=== PATIENT | female | born 1955 | race Caucasian/White ===

== ENCOUNTER 2019-06-25 01:24 | Inpatient (IN) | payer OTHER ==
[~2019-06-25] VITALS: Ht 154.9 cm; Wt 70.3 kg
[2019-06-25 01:34] VITALS: BP 135/62
[2019-06-25] MEDS ORDERED: LOSARTAN-HCTZ1 EAC1 PO (01:50)
[2019-06-25 02:25] LABS: ABSOLUTE NEUTROPHILS 10.9 thou/uL (1.4-8.2); BASOPHILS 1.3 % (0.0-2.0); EOSINOPHILS 2.1 % (0.0-3.0); HEMATOCRIT 39.2 % (37.0-47.0); HEMOGLOBIN 12.7 gm/dL (12.0-15.0); LYMPHOCYTES 20.8 % (24.0-44.0); MCH 26.9 pg (26.0-34.0); MCHC 32.5 g/dL (28.0-37.0); MCV 82.8 fL (80.0-100.0); MONOCYTES 9.7 % (1.0-8.0); PLATELET COUNT 379 thou/uL (150-400); POLYS 66.1 % (36.0-66.0); RBC 4.73 mil/uL (4.20-5.00); RDW 14.9 % (10.5-14.5); WBC 16.5 thou/uL (4.0-11.0)
[2019-06-25 02:26] LABS: CREATININE 1.1 mg/dL (0.6-1.0); POTASSIUM 3.6 mmol/L (3.5-5.1)
[2019-06-25 02:29] LABS: URINE BILIRUBIN NEGATIVE (Negative); URINE BLOOD 1+ (Negative); URINE CLARITY CLEAR; URINE COLOR YELLOW; URINE GLUCOSE-RANDOM* NEGATIVE (Negative); URINE KETONES NEGATIVE (Negative); URINE LEUKOCYTES-REFLEX TRACE (Negative); URINE NITRITE-REFLEX NEGATIVE (Negative); URINE PROTEIN (DIPSTICK) NEGATIVE (Negative); URINE UROBILINOGEN 0.2 E.U./dl (0.2-1.0)
[2019-06-25 02:32] LABS: ALBUMIN 3.3 g/dL (3.4-5.0); DIRECT BILIRUBIN 0.1 mg/dL (<0.1-0.3); TOTAL BILIRUBIN 0.5 mg/dL (<0.1-1.0); TOTAL PROTEIN 8.1 g/dL (6.4-8.2)
[2019-06-25 02:46] LABS: BACTERIA-REFLEX 1-9 Few /HPF (None Seen); CASTS None Seen /LPF (None Seen); CRYSTALS None Seen /LPF (None Seen); MUCUS 0-3 Light strn/LPF (None Seen); SQUAMOUS 0-3 Few /LPF (0-3); URINE RBC 3-10 Few /HPF (0-2); URINE WBC-REFLEX 0-5 Rare /HPF (0-5)
[2019-06-25 03:21] VITALS: BP 105/44
[2019-06-25 04:15] VITALS: BP 124/53
--- NOTE | 2019-06-25 07:32 | NUR ---
ASSUMED PT CARE ON 06/25/19 AT APPROX 0420. PT A&O X 4 IS BENGALI SPEAKING. PT IS COMPLAINING OF ABDOMINAL PAIN. PT IS UP AD RANDEE. PT HAS A LEFT AC WITH NS RUNNING AT 100MLS. PT HAS TWO FAMILY MEMEBERS IN THE ROOM WITH HER. PT RECEIVED TORADAL.
[2019-06-25 07:40] VITALS: BP 101/50
--- NOTE | 2019-06-25 07:51 | NUR ---
PATIENT RESTING QUIETLY IN BED NO PAIN SPEAKS SWEDISH STAFF USING JASKARAN TO TRANSLATE.
[2019-06-25 16:19] VITALS: BP 153/77
[2019-06-25 20:01] VITALS: BP 155/58
--- NOTE | 2019-06-26 03:25 | NUR ---
ASSUMED CARE @1900. PT COMPLAINING OF HEADACHE & UPPER ABDOMINAL PAIN. TEMP OF 101 TAKEN. TYLENOL & ACID REFLUX MEDS GIVEN, PROVIDED RELIEF. PTS GRANDON IN ROOM, GOOD CORPORATE ACCOUNTING MANAGER. COT PROVIDED FOR HIM TO STAY THE NIGHT. PT SLEPT MOST THE NIGHT.
[2019-06-26 03:40] LABS: ALBUMIN 2.8 g/dL (3.4-5.0); CALCIUM 8.4 mg/dL (8.5-10.1); PHOSPHORUS 2.6 mg/dL (2.5-4.9); POTASSIUM 3.2 mmol/L (3.5-5.1)
[2019-06-26 03:46] LABS: HEMATOCRIT 35.5 % (37.0-47.0); HEMOGLOBIN 11.6 gm/dL (12.0-15.0); MCH 27.3 pg (26.0-34.0); MCHC 32.6 g/dL (28.0-37.0); MCV 83.8 fL (80.0-100.0); RBC 4.23 mil/uL (4.20-5.00); RDW 15.3 % (10.5-14.5); WBC 13.5 thou/uL (4.0-11.0)
[2019-06-26 05:43] VITALS: BP 134/66
[2019-06-26 08:20] VITALS: BP 126/68
--- NOTE | 2019-06-26 10:07 | NUR ---
Resumed care at 0700. PT was asleep in bed with nephew asleep in recliner at bedside. PT awoke easily and denied any pain or discomfort. VSS. Education provided about plan of care and medications. Nephew at bedside translates between nurse and PT. PT verbalized understanding. PT is lying in bed. Call light is within reach. Nurse will continue to monitor.
[2019-06-26 16:00] VITALS: BP 128/62
[2019-06-26 20:45] VITALS: BP 134/71
--- NOTE | 2019-06-27 04:50 | NUR ---
PATIENT ALERT AND ORIENTED. DOES NOT SPEAK MUCH MOZAMBICAN BUT HAS FAMILY MEMBER IN ROOM WITH HER. ACCUCHECK WAS 215. EXPLAINED THE REASON FOR TAKING IT, THE METHYLPREDNISONE. PT UP IN ROOM AD RANDEE. SLEPT MOST OF NIGHT.
[2019-06-27 05:11] LABS: HEMATOCRIT 39.2 % (37.0-47.0); HEMOGLOBIN 12.5 gm/dL (12.0-15.0); MCH 27.1 pg (26.0-34.0); MCV 84.9 fL (80.0-100.0); RBC 4.62 mil/uL (4.20-5.00); WBC 15.8 thou/uL (4.0-11.0)
[2019-06-27 05:35] VITALS: BP 126/67
[2019-06-27 05:36] LABS: GLYCOHEMOGLOBIN (HGB A1C) 6.2 % (4.8-5.6)
[2019-06-27 07:45] VITALS: BP 121/56
--- NOTE | 2019-06-27 15:10 | NUR ---
ASSUMED CARE OF PT AT 0700. PT IS UP AD RANDEE IN HER ROOM. PT DENIES PAIN AT THIS TIME. PT ONLY SPEAKS TURKISH, FAMILY MEMBERS AT BEDSIDE. PT RECEIVED SCHEDULED MEDICATION ORDERED. VSS, CALL LIGHT IN REACH, AND PT IS TOLERATING DIET. WILL CONTINUE TO MONITOR.
[2019-06-27 19:04] VITALS: BP 169/71
[2019-06-28 04:29] VITALS: BP 138/67
--- NOTE | 2019-06-28 05:28 | NUR ---
PT AMBULATING TO BATHROOM INDEPENDENTLY AND IS TOLERATING WELL. DENIES PAIN. RESTING COMFORTABLY. NO NEEDS VOICED. CALL LIGHT WITHIN REACH. WILL CONTINUE TO PROVIDE FREQUENT OBSERVATION.
--- NOTE | 2019-06-28 08:06 | NUR ---
PT ALERT XS 4 SPEAKS GEORGIAN BUT FAMILY MEMBER IN ROOM TRANSLATES. DR TELLEZ HERE EXPLANED BRONCH TEST PT SIGNED CONSENT. P/U FOR TEST AT 0830.PROCEDURE AT 0930.
--- NOTE | 2019-06-28 08:24 | NUR ---
PT LEFT UNIT AT THIS TIME FOR PROCEDURE.
[2019-06-28 08:55] VITALS: BP 153/65
[2019-06-28 12:14] LABS: CLARITY TURBID; COLOR RED; SOURCE BRONCH LAVAGE; TOTAL VOLUME 7 mL
[2019-06-28 12:40] LABS: BF NUCLEATED CELLS 1534; BF RBC 326399
[2019-06-28 13:24] LABS: BF MACROPHAGE 7; BF NEUTROPHILS 90
[2019-06-28 13:45] LABS: APTT 28.6 Seconds (24.5-32.8); INR 1.1; PROTIME 11.2 Seconds (9.3-11.4)
[2019-06-28 14:46] VITALS: BP 164/68
[2019-06-28 14:56] VITALS: BP 202/77
[2019-06-28 20:20] VITALS: BP 142/66
--- NOTE | 2019-06-29 04:18 | NUR ---
ASSUMED PT CARE AT 1900. PT DENIES PAIN. UP TO BATHROOM TONIGHT. AUDIBLE WHEEZES NOTED ON EXPIRATION. PT RESTING COMFORTABLY.
[2019-06-29 04:40] VITALS: BP 142/69
[2019-06-29 08:05] VITALS: BP 150/74
--- NOTE | 2019-06-29 11:04 | NUR ---
PT RESTING IN BED. NO PAIN ROOM QUIET AND LIGHTS DOWN. HAD TESTS YESTERDAY. AWAITNG BIOPSY RESULTS. IV ABTS ORDERED.
--- NOTE | 2019-06-29 14:33 | NUR ---
PT ADMITTED RELATED TO PNEUMONIA, DIABETES. CM REVIEWED CHART AND SPOKE WITH CARE TEAM. CM MET WITH PT AT BEDSIDE THIS DAY AND USED DYE REEL OPERATOR LINE TO SPEAK WITH PT. SHE INDICATED THAT SHE IS HERE FROM [facility] ON A 6 MONTH VACATION V[place]. SHE INDICATED SHE ONLY PLANNED TO BE HERE FOR 3 MONTHS. 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 SHE INDICATED SHE HAD BEEN TO ER AND HAD XRAY DONE THEN CAME BACK. SHE HAD BIOPSIES DONE AND WE ARE AWAITING RESULTS. PT WILL NEED RESOURCES FOR FOLLOW UP CARES UPON DC. CM TO FOLLOW INDICATED WITH DC PLANNING.
[2019-06-29 16:45] VITALS: BP 179/86
[2019-06-29 19:15] VITALS: BP 128/65
--- NOTE | 2019-06-30 03:10 | NUR ---
ASSUMED PT CARE @1900. PT STATES LITTLE PAIN IN THROAT, DID NOT WANT ANY MEDICATION. SCHEDULED (MUCINEX & ANTIBIOTICS) MEDS GIVEN. FAMILY AT BEDSIDE TALKING WITH PT. NO SIGNIFCANT CHANGES.
[2019-06-30 05:00] VITALS: BP 142/75
[2019-06-30 15:20] VITALS: BP 167/83
--- NOTE | 2019-06-30 15:31 | PATH ---
[facility] [address] [place] [address] PATHOLOGY RPT PROCEDURE Name: LYNDSEY CEJA Room #: 439-P ADM IN M.R.#: [id number] Admission: 06/25/19 Date of : 55 Discharge: Report #: [id number] Path Case #: [id number] Note LCA Accession Number: [id number] TESTS RESULT FLAG UNITS REF RANGE LAB Clinician Provided Cytology Information No. of containers..01 Other (Miscellaneous) Source: TBNA SUBCARINAL DIAGNOSIS: 02 TBNA SUBCARINAL NEGATIVE FOR MALIGNANT CELLS. REACTIVE BRONCHIAL CELLS ARE PRESENT. THIS INTERPRETATION INCLUDES EVALUATION OF A CELL BLOCK. NO LYMPHOID TISSUE PRESENT. Pathologist ICD10: 02 J18.9 Signed out by: 02 Nilam Gant MD, Pathologist NPI- [id number] Performed by: Aliyah Gudino, Fashion Designer ([facility]) Gross description: 01 12ML, KARSTEN BOURGEOIS /MENA 07/27/1840 0000 Local FLAG LEGEND: L-Low Normal,H-High Normal,LL-Alert Low,HH-Alert High <-Panic Low,>-Panic High,A-Abnormal,AA-Critical Abnormal Performed at: [address] [place] [address] Lawrence Farrell MD, [address] [address] Nilam Gant MD, Specimen Comment: A courtesy copy of this report has been sent to [phone] Specimen Comment: [id number] Specimen Comment: Report sent to Performed at: [address], [place], [place] [id number] MD Lawrence Farrell MD Phone: [phone]
--- NOTE | 2019-06-30 15:31 | PATH ---
[facility] [address] [place] [address] PATHOLOGY RPT PROCEDURE Name: LYNDSEY CEJA Room #: 439-P ADM IN M.R.#: [id number] Admission: 06/25/19 Date of : 55 Discharge: Report #: [id number] Path Case #: [id number] Note LCA Accession Number: [id number] TESTS RESULT FLAG UNITS REF RANGE LAB Clinician Provided Cytology Information No. of containers..01 Other (Miscellaneous) Source: RLL BAL DIAGNOSIS: RLL BAL NEGATIVE FOR MALIGNANT CELLS. PULMONARY MACROPHAGES (DUST CELLS) ARE PRESENT. BACKGROUND OF MILD ACUTE INFLAMMATION. Pathologist ICD10: 02 J18.9 Signed out by: Nilam Gant MD, Pathologist NPI- [id number] Performed by: Aliyah Gudino, Plain Clothes Police Officer ([facility]) Gross description: 01 8 ML, RED, CLOUDY /LCS 07/27/1840 0000 Local FLAG LEGEND: L-Low Normal,H-High Normal,LL-Alert Low,HH-Alert High <-Panic Low,>-Panic High,A-Abnormal,AA-Critical Abnormal Performed at: [address] [place] [address] Lawrence Farrell MD, [address] [address] Nilam Gant MD, Specimen Comment: A courtesy copy of this report has been sent to [phone] Specimen Comment: [id number] Specimen Comment: Report sent to Performed at: [address], [place], [place] [id number] MD Lawrence Farrell MD Phone: [phone]
--- NOTE | 2019-06-30 15:31 | PATH ---
[facility] [address] [place] [address] PATHOLOGY RPT PROCEDURE Name: LYNDSEY CEJA Room #: 439-P ADM IN M.R.#: [id number] Admission: 06/25/19 Date of : 55 Discharge: Report #: [id number] Path Case #: [id number] Note LCA Accession Number: [id number] TESTS RESULT FLAG UNITS REF RANGE LAB Clinician Provided Cytology Information No. of containers..01 Other (Miscellaneous) Source: 01 SECOND. BRONCHUS BT DIAGNOSIS: 02 SECOND. BRONCHUS BT NEGATIVE FOR MALIGNANT CELLS. NORMAL BRONCHIAL CELLS AND MACROPHAGES ARE PRESENT. Pathologist ICD10: 02 J18.9 Signed out by: Nilam Gant MD, Pathologist NPI- [id number] Performed by: Aliyah Gudino, Chart Calculator ([facility]) Gross description: 01 20ML, COLORLESS, CLEAR /LCS 07/27/1840 0000 Local FLAG LEGEND: L-Low Normal,H-High Normal,LL-Alert Low,HH-Alert High <-Panic Low,>-Panic High,A-Abnormal,AA-Critical Abnormal Performed at: [address] [place] [address] Lawrence Farrell MD, [address] [address] Nilam Gant MD, Specimen Comment: A courtesy copy of this report has been sent to [phone] Specimen Comment: [id number] Specimen Comment: Report sent to Performed at: [address], [place], [place] [id number] MD Lawrence Farrell MD Phone: [phone]
[2019-06-30 16:55] VITALS: BP 152/77
--- NOTE | 2019-06-30 17:49 | NUR ---
PT ALERT AND ORIENTED TIMES FOUR. VSS, PT ARMENIAN SPEAKING ONLY, FIRE PILOT DEVICE USED FOR ASSESSMENTS. PT DENIES PAIN/SOA. PT TOLERATES MEDS AND MEALS. PT UP AB RANDEE WITH STEADY GAIT. PT SLOWLY PROGRESSING TOWRADS POC GOALS.
[2019-06-30 20:28] VITALS: BP 152/68
--- NOTE | 2019-07-01 03:41 | NUR ---
ASSESSMENT COMPLETED. PT IS VERY POLITE AND PLEASANT. SHE C/O OF 3/10 PAIN TO RIB AREA TO BACK (RIGHT). GIVEN TYLENOL WITH RELIEF. SHE IS AFEBRILE. SHE IS UP AD RANDEE IN ROOM.REMAINS COMFORTABLE ON ROOM AIR.
[2019-07-01 04:43] VITALS: BP 135/65
[2019-07-01 07:41] VITALS: BP 146/77
[2019-07-01] MEDS ORDERED: PREDNISONE 20 M20 M1 PO (09:28)
[2019-07-01] MEDS ORDERED: AUGMENTIN 875-1 EACH PO (09:28)
[2019-07-01] MEDS ORDERED: GLUCOPHAGE500 MG PO (09:28)
--- NOTE | 2019-07-01 10:02 | PATH ---
[facility] [address] [place] [address] PATHOLOGY RPT PROCEDURE Name: LYNDSEY CEJA Room #: 439-P ADM IN M.R.#: [id number] Admission: 06/25/19 Date of : 55 Discharge: Report #: [id number] Path Case #: [id number] Note LCA Accession Number: [id number] TESTS RESULT FLAG UNITS REF RANGE LAB Clinician Provided Cytology Information No. of containers..01 Slide Source: RML BRUSHING DIAGNOSIS: RML BRUSHING NEGATIVE FOR MALIGNANT CELLS. NORMAL BRONCHIAL CELLS AND MACROPHAGES ARE PRESENT. Pathologist ICD10: 02 J18.9 Signed out by: 02 Nilam Gant MD, Pathologist NPI- [id number] Performed by: 01 Aliyah Gudino [employer] ([employer]) FLAG LEGEND: L-Low Normal,H-High Normal,LL-Alert Low,HH-Alert High <-Panic Low,>-Panic High,A-Abnormal,AA-Critical Abnormal Performed at: [address] [place] [address] Lawrence Farrell MD, [address] [place] [address] Nilam Gant MD, Specimen Comment: A courtesy copy of this report has been sent to [phone] Specimen Comment: Report sent to Specimen Comment: A duplicate report has been generated due to demographic updates. Performed at: [address], [place], [place] [id number] MD Lawrence Farrell MD Phone: [phone]
[2019-07-01 12:18] VITALS: BP 132/66
[2019-07-01 13:23] VITALS: BP 132/66
--- NOTE | 2019-07-01 14:06 | NUR ---
ASSUMED CARE OF PT AT APPROX 0700. PT IS ALERT AND ORIENTED X4, VSS, DENIES PAIN. ASSESSMENT CHARTED. WENT OVER DIAGNOSIS WITH DR AND PT. GAVE PT EDUCATION ON DIAGNOSIS IN [place]AM[place]. RECIEVED ORDERS FOR DC. COMPLETED DC. WENT OVER DC INSTRUCTIONS AND FOLLOW-UPS WITH PT AND FAMILY MEMBER. NO NEW CONCERNS VERBALIZED. CURRENTLY WAITING ON FILLED SCRIPTS THAT WERE PROVIDED BY PATIENT. PT HAS MET POC GOALS OF DC. WILL CONT. TO MONITOR.
[2019-07-01 14:21] VITALS: BP 132/66
--- NOTE | 2019-07-01 14:30 | NUR ---
VOUCHED FOR 3 PRESCRIPTIONS FOR PT IN [facility] FOR $29.85. S/W RHIANNA DELEON FINANCIAL COUNSELOR AT DR TELLEZ'S OFFICE AND SHE SAYS THAT THERE WILL BE NO CHAREITABLE PROGRAMS FOR PT. SHE WILL NEED TO BE SCREENED BY NAVIGATION AT THE [facility] [phone]. FAXED FACE SHEET, ER REPORT, H&P, ALL CONSULTS, LABS, X-RAY REPORTS TO [facility] [phone]. PT INSTRUCTED ON FOLLOWING UP WITH MEDICAL DR AT [facility] FROM LIST SHE WAS GIVEN YESTERDAY. PT HAS PRESCRIPTION DRUG DISCOUNT CARD TOO. DR ARENAS ALSO S/W PT ABOUT POSSIBLY FOLLOWING UP AT [facility].
--- NOTE | 2019-07-01 20:06 | PATH ---
[facility] [address] [place] [address] PATHOLOGY RPT PROCEDURE Name: SHELLY CEJA Room #: 439-P [facility] IN M.R.#: [id number] Admission: 06/25/19 Date of : 55 Discharge: 07/01/19 Report #: [id number] Path Case #: [id number] LCA Accession Number: [id number] . 01 Material submitted: . liver - LIVER MASS BIOPSY . 01 Clinical history: . Liver mass . 02 Diagnosis: Liver, liver mass, needle core biopsy: - LOW GRADE NEUROENDOCRINE TUMOR (CARCINOID TUMOR). (SEE COMMENT) . (IUV:mml; 07/01/2019) [facility] 07/01/2019 1301 Local . 02 Comment: Examination shows a low grade, gland-forming neoplasm with eccentrically placed nuclei and occasional goblet cells intraluminally. Multiple properly-controlled immunohistochemical stains are performed on block A1. The tumor shows no reactivity with CK7, CK20, CDX-2, TTF-1, Glypican-3, HSA, PAX-8, CK19, monoclonal CEA, Vimentin, CD10 and LUIZ. The tumor shows granular nuclear reactivity with Synaptophysin, Chromogranin and membranous reactivity with CD56. . 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 The non-reactive immunohistochemical stains argue against a metastatic lung adenocarcinoma, metastatic renal cell carcinoma, an adenocarcinoma of gastrointestinal origin, as well as a primary hepatocellular carcinoma and cholangiocarcinoma. . Dr. Yuni Knapp has seen a plastic products sales representative slide (A2, level 5) and concurs with the diagnosis. The findings of this case are discussed with Dr. Nacho Rainey at approximately 9:23 a.m. on 07/01/19. . (IUV:mml; 07/01/2019) . 02 Electronically signed: . Nilam Gant MD, Pathologist NPI- [id number] . 01 Gross description: . Received in formalin labeled "Shelly Ceja, liver mass BX," are 3 distinct needle cores of galvan soft tissue ranging from 0.5-2.0 [place] [address] PATHOLOGY RPT PROCEDURE Name: MOLINA SHELLY DEL ANGEL Room #: 439-P DIS IN M.R.#: [id number] Admission: 06/25/19 Date of : 55 Discharge: 07/01/19 Report #: [id number] Path Case #: [id number] and measuring less than 0.1 cm each in diameter. The specimen is submitted in its entirety in cassettes A1-A3. (TSD; 06/28/2019) TOB/TOB 06/28/2019 2223 Local . 02 Pathologist provided ICD-10: D3A.8 . 02 CPT . 380935, D67004, Q84033 Specimen Comment: A courtesy copy of this report has been sent to [phone] Specimen Comment: [phone] Specimen Comment: Report sent to / DR ARENAS Performed at: [address], [place] [id number] MD Lawrence Farrell MD Phone: [phone] Performed at: [address] [id number] MD Nilam Gant MD Phone: [phone]
== END 2019-07-01 15:56 | disposition home or self-care (01) | DRG 871 ==
LOC: ER 01:24 → EDBD 02:56 → 4S 02:56 → EROBS 02:56 → 4S 04:06 → ENTRNSPT 07-01 15:43 → EDTRNSPTSTS 07-01 15:47 → 4S 07-01 15:56
PROVIDERS: Emergency Medicine; Nurse Practitioner Family; Radiology Vascular & Interventional Radiology; ADMIT Hospitalist
PROC: 0FB23ZX Excision of Left Lobe Liver, Percutaneous Approach, Diagnostic (ICD-10-PCS; principal; 2019-06-28)
PROC: 0BD68ZX Extraction of Right Lower Lobe Bronchus, Via Natural or Artificial Opening Endoscopic, Diagnostic (ICD-10-PCS; principal; 2019-06-28)
PROC: 0B9F8ZX Drainage of Right Lower Lung Lobe, Via Natural or Artificial Opening Endoscopic, Diagnostic (ICD-10-PCS; principal; 2019-06-28)
DX: A41.9 Sepsis, unspecified organism (principal); J18.9 Pneumonia, unspecified organism; E87.1 Hypo-osmolality and hyponatremia; C34.90 Malignant neoplasm of unspecified part of unspecified bronchus or lung; R73.9 Hyperglycemia, unspecified; R91.8 Other nonspecific abnormal finding of lung field; R59.9 Enlarged lymph nodes, unspecified; R16.0 Hepatomegaly, not elsewhere classified; I10 Essential (primary) hypertension; R73.03 Prediabetes; E74.39 Other disorders of intestinal carbohydrate absorption; Z79.899 Other long term (current) drug therapy
CPT/HCPCS: 10195; 62110; 62900; 70005